=== PATIENT | male | born 1990 | race African-American/Black ===

== ENCOUNTER 2020-06-03 00:31 | Emergency (ER) | payer OTHER ==
[~2020-06-03] VITALS: Ht 170.2 cm; Wt 81.8 kg
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
[2020-06-03 02:39] VITALS: BP 137/62
== END 2020-06-03 02:41 | disposition home or self-care (01) ==
LOC: M ED 00:31
DX: S01.01XA Laceration without foreign body of scalp, initial encounter (principal); W22.8XXA Striking against or struck by other objects, initial encounter; Y92.018 Other place in single-family (private) house as the place of occurrence of the external cause

== ENCOUNTER → 2021-08-09 | Outpatient (REF) | LOC: M PLAIMG 08:52 | PROVIDERS: ATTEND Internal Medicine | DX: M79.642 Pain in left hand (principal) ==